=== PATIENT | male | born 1940 | race Caucasian/White ===

== ENCOUNTER 2017-03-14 09:24 | Day surgery (SDC) | payer OTHER ==
[~2017-03-14] VITALS: Ht 180.3 cm; Wt 98.9 kg
[~2017-03-14 09:24] MED LIST: ASPIR-LOW81 MG PO; LOW DOSE ASPIRI81 M1 PO; LYRICA75 MG PO; MOBIC15 MG PO; MORPHINE SULFAT15 M1 PO; NEURONTIN300 MG PO; NORCO 5/3251 TABLET PO; NORVASC5 MG PO; PRINIVIL5 MG PO; ULTRAM50 MG PO; VITAMIN D250000 UNIT PO
== END 2017-03-14 11:15 | disposition home or self-care (01) ==
LOC: PAIN 09:24 → SDC 10:15 → PAIN 11:15
PROC: 3E0S33Z Introduction of Anti-inflammatory into Epidural Space, Percutaneous Approach (ICD-10-PCS; principal; 2017-03-14)
DX: M54.16 Radiculopathy, lumbar region (principal); M51.36 Other intervertebral disc degeneration, lumbar region; M54.32 Sciatica, left side; M51.26 Other intervertebral disc displacement, lumbar region; M43.16 Spondylolisthesis, lumbar region; I10 Essential (primary) hypertension; Z86.73 Personal history of transient ischemic attack (TIA), and cerebral infarction without residual deficits; E78.5 Hyperlipidemia, unspecified; E66.3 Overweight; Z68.30 Body mass index [BMI] 30.0-30.9, adult; F17.200 Nicotine dependence, unspecified, uncomplicated; Z88.0 Allergy status to penicillin
CPT/HCPCS: J1030; J1100; J2250; J3010; S0020

== ENCOUNTER 2017-04-11 08:25 | Day surgery (SDC) | payer OTHER ==
[~2017-04-11] VITALS: Ht 182.9 cm; Wt 95.3 kg
== END 2017-04-11 10:23 | disposition home or self-care (01) ==
LOC: PAIN 08:25 → SDC 09:00 → PAIN 09:00
DX: M47.26 Other spondylosis with radiculopathy, lumbar region (principal); M43.16 Spondylolisthesis, lumbar region; M51.26 Other intervertebral disc displacement, lumbar region; G89.4 Chronic pain syndrome; I10 Essential (primary) hypertension; N28.9 Disorder of kidney and ureter, unspecified; Z86.73 Personal history of transient ischemic attack (TIA), and cerebral infarction without residual deficits; F17.210 Nicotine dependence, cigarettes, uncomplicated; Z88.0 Allergy status to penicillin
CPT/HCPCS: J1100; J2250; J3010

== ENCOUNTER 2017-05-30 10:35 | Day surgery (SDC) | payer OTHER ==
[~2017-05-30] VITALS: Ht 182.9 cm; Wt 95.3 kg
== END 2017-05-30 12:33 | disposition home or self-care (01) ==
LOC: PAIN 10:35 → SDC 11:15 → PAIN 12:33
DX: M47.26 Other spondylosis with radiculopathy, lumbar region (principal); G89.4 Chronic pain syndrome; M51.16 Intervertebral disc disorders with radiculopathy, lumbar region; M48.06 Spinal stenosis, lumbar region; F17.200 Nicotine dependence, unspecified, uncomplicated; I10 Essential (primary) hypertension; Z86.73 Personal history of transient ischemic attack (TIA), and cerebral infarction without residual deficits; Z88.0 Allergy status to penicillin
CPT/HCPCS: J1030; J2250; J3010; S0020

== ENCOUNTER 2017-06-06 10:01 | Day surgery (SDC) | payer OTHER ==
[~2017-06-06] VITALS: Ht 182.9 cm; Wt 95.2 kg
== END 2017-06-06 12:05 | disposition home or self-care (01) ==
LOC: PAIN 10:01 → SDC 11:15 → PAIN 12:05
DX: M47.26 Other spondylosis with radiculopathy, lumbar region (principal); M51.16 Intervertebral disc disorders with radiculopathy, lumbar region; G89.4 Chronic pain syndrome; M48.06 Spinal stenosis, lumbar region; I10 Essential (primary) hypertension; N28.9 Disorder of kidney and ureter, unspecified; F17.210 Nicotine dependence, cigarettes, uncomplicated; M43.16 Spondylolisthesis, lumbar region; E78.1 Pure hyperglyceridemia; Z86.73 Personal history of transient ischemic attack (TIA), and cerebral infarction without residual deficits; Z88.0 Allergy status to penicillin
CPT/HCPCS: J1030; J3010; S0020

== ENCOUNTER 2017-07-06 12:41 | Day surgery (SDC) | payer OTHER ==
[~2017-07-06] VITALS: Ht 182.9 cm; Wt 93.4 kg
[~2017-07-06 12:41] MED LIST changes: -MORPHINE SULFAT15 M1 PO; +MORPHINE SULFAT15 MG PO
== END 2017-07-06 15:26 | disposition home or self-care (01) ==
LOC: PAIN 12:41 → SDC 13:30 → PAIN 13:30
PROC: 015B3ZZ Destruction of Lumbar Nerve, Percutaneous Approach (ICD-10-PCS; principal; 2017-07-06)
DX: M47.26 Other spondylosis with radiculopathy, lumbar region (principal); G89.4 Chronic pain syndrome; I10 Essential (primary) hypertension; Z86.73 Personal history of transient ischemic attack (TIA), and cerebral infarction without residual deficits; E78.00 Pure hypercholesterolemia, unspecified; E78.1 Pure hyperglyceridemia; M51.16 Intervertebral disc disorders with radiculopathy, lumbar region; F17.210 Nicotine dependence, cigarettes, uncomplicated; E66.3 Overweight; N28.9 Disorder of kidney and ureter, unspecified; Z88.0 Allergy status to penicillin
CPT/HCPCS: J1030; S0020

== ENCOUNTER 2017-07-10 18:50 | Observation (INO) | payer OTHER ==
[~2017-07-10] VITALS: Ht 182.9 cm; Wt 91.4 kg
[2017-07-10 19:21] LABS: HEMATOCRIT 45.2 % (38.0-50.0); MCHC 32.3 G/DL (30.0-36.0); MEAN PLAT.VOLUME 10.1 uM^3 (9.0-12.4); PLATELET COUNT 317 K/uL (156-360); RBC DIS.WIDTH-CV 13.8 % (11.8-14.6); RBC DIS.WIDTH-SD 49.1 % (39-53); RED BLOOD COUNT 4.71 M/uL (4.00-5.50); WHITE BLOOD COUNT 10.1 K/uL (4.1-10.2)
[2017-07-10 19:28] LABS: CHLORIDE 103 mEq/L (99-109); POTASSIUM 3.9 mEq/L (3.7-5.4); SODIUM 142 mEq/L (136-147)
[2017-07-10 19:30] LABS: GLUCOSE 109 mg/dL (70-99)
[2017-07-10 19:32] LABS: ANION GAP 10 MEQ/L (2-14)
[2017-07-10 19:34] LABS: GFR ESTIMATE (CALCULATED) 53 mL/min/
[2017-07-10 19:35] LABS: UREA NITROGEN (BUN) 25 mg/dL (9-23)
[2017-07-10 20:02] LABS: TROP-I INTERPRETATION NEGATIVE; TROPONIN-I < 0.01 ng/mL (0.0-0.30)
[2017-07-10 22:54] LABS: TOTAL BILIRUBIN 0.3 mg/dL (0.0-1.0)
[2017-07-10 22:55] LABS: ALKALINE PHOSPHATASE 60 IU/L (3-129); PROTHROMBIN TIME 11.1 SEC (10.2-12.9)
[2017-07-10 22:57] LABS: DIRECT BILIRUBIN 0.1 mg/dL (0.0-0.3); PTT 29.9 SEC (25-37)
[2017-07-11] MEDS ORDERED: LO-DOSE ASPIRIN81 M2 PO (00:20)
[2017-07-11 02:34] VITALS: BP 184/94
[2017-07-11 05:49] VITALS: BP 144/76
[2017-07-11 08:56] VITALS: BP 133/91
[2017-07-11 09:21] LABS: ADD MIUA? YES; BILIRUBIN NEGATIVE; BLOOD NEGATIVE; COLOR YELLOW ((YELLOW)); GLUCOSE (STRIP) NEGATIVE; KETONES NEGATIVE; LEUKOCYTES NEGATIVE; NITRITE NEGATIVE; PROTEIN (STRIP) 100; SPECIFIC GRAVITY 1.016 (1.000-1.030); UROBILINOGEN 0.2 MG/DL (0.2-1.0)
[2017-07-11 09:42] LABS: BACTERIA NONE SEEN /HPF; EPITHELIAL CELLS RARE /HPF; GRANULAR CASTS 0-5 /LPF; MUCUS NONE SEEN /LPF; RED BLOOD CELLS 0-5 /HPF (0-5); WHITE BLOOD CELLS 0-5 /HPF (0-5)
[2017-07-11 09:54] LABS: HEMATOCRIT 43.1 % (38.0-50.0); MCH 30.7 PG (29.0-34.0); MCHC 31.6 G/DL (30.0-36.0); MCV 97.3 FL (86-99); MEAN PLAT.VOLUME 10.2 uM^3 (9.0-12.4); PLATELET COUNT 288 K/uL (156-360); RBC DIS.WIDTH-CV 13.5 % (11.8-14.6); RBC DIS.WIDTH-SD 48.8 % (39-53); RED BLOOD COUNT 4.43 M/uL (4.00-5.50); WHITE BLOOD COUNT 6.7 K/uL (4.1-10.2)
[2017-07-11 10:16] LABS: ALKALINE PHOSPHATASE 49 IU/L (3-129); ANION GAP 8 MEQ/L (2-14); CHLORIDE 105 MEQ/L (99-109); GFR ESTIMATE (CALCULATED) > 59 mL/min/; POTASSIUM 4.3 MEQ/L (3.7-5.4); SAMPLE HEMOLYSIS CHECK 0; SAMPLE ICTERIC CHECK 0; SAMPLE LIPEMIA CHECK 0; SODIUM 141 MEQ/L (136-147); TOTAL BILIRUBIN 0.3 MG/DL (0.0-1.0); UREA NITROGEN (BUN) 23 mg/dL (9-23)
[2017-07-11 10:17] LABS: GLUCOSE 219 mg/dL (70-99)
== END 2017-07-11 15:00 | disposition home or self-care (01) ==
LOC: EME 18:50 → EDOF 07-11 01:38 → ENRESERV 07-11 01:41 → 5WEST 07-11 02:20
PROVIDERS: Internal Medicine; Nurse Practitioner Family
DX: J44.1 Chronic obstructive pulmonary disease with (acute) exacerbation (principal); I10 Essential (primary) hypertension; E78.5 Hyperlipidemia, unspecified; Z86.73 Personal history of transient ischemic attack (TIA), and cerebral infarction without residual deficits; F17.200 Nicotine dependence, unspecified, uncomplicated; Z79.82 Long term (current) use of aspirin; Z79.899 Other long term (current) drug therapy; N17.9 Acute kidney failure, unspecified; F41.9 Anxiety disorder, unspecified; Z88.0 Allergy status to penicillin
CPT/HCPCS: 70450; 71020; 80048; 80053; 80076; 81003; 83880; 84484; 85027; 85610; 85730; 93005; 94640; 99281; 99284; G0378; J1100; J1644; J2930; J7030

== ENCOUNTER 2017-07-13 14:10 | Day surgery (SDC) | payer OTHER ==
[~2017-07-13] VITALS: Ht 182.9 cm; Wt 91.4 kg
[~2017-07-13 14:10] MED LIST changes: +LO-DOSE ASPIRIN81 M2 PO
== END 2017-07-13 16:15 | disposition home or self-care (01) ==
LOC: PAIN 14:10 → SDC 15:00 → PAIN 16:15
DX: M47.26 Other spondylosis with radiculopathy, lumbar region (principal); M51.16 Intervertebral disc disorders with radiculopathy, lumbar region; M48.06 Spinal stenosis, lumbar region; I10 Essential (primary) hypertension; M47.812 Spondylosis without myelopathy or radiculopathy, cervical region; E78.00 Pure hypercholesterolemia, unspecified; M43.16 Spondylolisthesis, lumbar region; F17.200 Nicotine dependence, unspecified, uncomplicated; Z88.0 Allergy status to penicillin
CPT/HCPCS: J1030; J1885; J2250; S0020

== ENCOUNTER 2018-04-30 09:52 | Day surgery (SDC) | payer OTHER ==
[~2018-04-30] VITALS: Ht 182.9 cm; Wt 91.2 kg
[~2018-04-30 09:52] MED LIST changes: +NORVASC10 MG PO; -NORVASC5 MG PO
[2018-04-30] MEDS ORDERED: ULTRAM50 MG PO (11:12)
== END 2018-04-30 12:38 | disposition home or self-care (01) ==
LOC: PAIN 09:52 → SDC 11:00 → PAIN 12:38
PROC: 3E0U3BZ Introduction of Anesthetic Agent into Joints, Percutaneous Approach (ICD-10-PCS; principal; 2018-04-30)
PROC: 3E0U33Z Introduction of Anti-inflammatory into Joints, Percutaneous Approach (ICD-10-PCS; principal; 2018-04-30)
DX: M53.3 Sacrococcygeal disorders, not elsewhere classified (principal); M46.1 Sacroiliitis, not elsewhere classified; M47.816 Spondylosis without myelopathy or radiculopathy, lumbar region; M51.16 Intervertebral disc disorders with radiculopathy, lumbar region; M48.061 Spinal stenosis, lumbar region without neurogenic claudication; F17.200 Nicotine dependence, unspecified, uncomplicated; Z88.0 Allergy status to penicillin; Z79.891 Long term (current) use of opiate analgesic; Z86.73 Personal history of transient ischemic attack (TIA), and cerebral infarction without residual deficits; Z79.82 Long term (current) use of aspirin
CPT/HCPCS: J1030; S0020